=== PATIENT | male | born 1985 | race Caucasian/White ===

== ENCOUNTER 2018-04-09 13:37 | Emergency (ER) | payer MEDICAID ==
[~2018-04-09] VITALS: Ht 170.2 cm; Wt 87.5 kg
[2018-04-09 14:45] VITALS: Ht 170.2 cm; Wt 87.5 kg
[2018-04-09 16:49] VITALS: BP 136/84
== END 2018-04-09 16:49 | disposition home or self-care (01) ==
LOC: ED 13:37
DX: M25.461 Effusion, right knee (principal); M25.561 Pain in right knee

== ENCOUNTER 2018-10-04 22:31 | Emergency (ER) | payer MEDICAID ==
[~2018-10-04] VITALS: Ht 175.3 cm; Wt 90.3 kg
[2018-10-04 22:36] VITALS: Ht 175.3 cm; Wt 90.3 kg
[2018-10-05 01:22] VITALS: BP 110/74
== END 2018-10-05 01:22 | disposition home or self-care (01) ==
LOC: ED 22:31
DX: G44.209 Tension-type headache, unspecified, not intractable (principal); R42 Dizziness and giddiness; R53.1 Weakness; H53.8 Other visual disturbances
CPT/HCPCS: J1885